=== PATIENT | female | born 1960 | race Caucasian/White ===

== ENCOUNTER → 2016-09-12 | Outpatient (CLI) | payer BC ==
--- NOTE | 2016-09-13 07:59 | MM ---
Reason for exam: screening (asymptomatic). Last mammogram was performed 1 year and 1 month ago. History: Patient is postmenopausal. Taking estrogen for 10 years 3 months beginning at age 40. Physical Findings: A clinical breast exam by your physician is recommended on an annual basis and results should be correlated with mammographic findings. MG Screening Mammo w CAD Bilateral CC and MLO view(s) were taken. Prior study comparison: August 27, 2015, bilateral MG screening mammo w CAD. August 25, 2014, bilateral MG screening mammo w CAD. The breast tissue is heterogeneously dense. This may lower the sensitivity of mammography. There is chronic nodularity bilaterally. There is no dominant lesion. No significant changes when compared with prior studies. ASSESSMENT: Benign, BI-RAD 2 RECOMMENDATION: Routine screening mammogram of both breasts in 1 year.
== END | disposition home or self-care (01) ==
LOC: RADMAMWWP 07:00
PROVIDERS: ATTEND Family Medicine
DX: Z12.31 Encounter for screening mammogram for malignant neoplasm of breast (principal)

== ENCOUNTER → 2017-10-17 | Outpatient (CLI) | payer BC ==
--- NOTE | 2017-10-18 07:20 | MM ---
Reason for exam: screening (asymptomatic). Last mammogram was performed 1 year and 1 month ago. History: Patient is postmenopausal. Took estrogen for 17 years 3 months beginning at age 40. Physical Findings: A clinical breast exam by your physician is recommended on an annual basis and results should be correlated with mammographic findings. MG Screening Mammo w CAD Bilateral CC and MLO view(s) were taken. Prior study comparison: September 12, 2016, bilateral MG screening mammo w CAD. August 27, 2015, bilateral MG screening mammo w CAD. The breast tissue is heterogeneously dense. This may lower the sensitivity of mammography. Benign appearing bilateral punctate calcifications. ASSESSMENT: Benign, BI-RAD 2 RECOMMENDATION: Routine screening mammogram of both breasts in 1 year.
== END | disposition home or self-care (01) ==
LOC: RADMAMWWP 07:01
PROVIDERS: ATTEND Family Medicine
DX: Z12.31 Encounter for screening mammogram for malignant neoplasm of breast (principal)
CPT/HCPCS: 77067

== ENCOUNTER 2018-05-31 08:55 | Day surgery (SDC) | payer BC, OTHER ==
[2018-05-29 09:30] VITALS: BMI 27.6
[~2018-05-31 08:55] MED LIST: LACTATED RINGERS 1,000 ML IV SCH; LIDOCAINE 1% 20 ML VIAL (10MG/ML) FOR IV START INTRADERMA PRN
[2018-05-31 09:32] VITALS: RESP 16; TEMP 97
[2018-05-31] MEDS ORDERED: PROPOFOL 10 MG/ML 20 ML VIAL IV ONE (10:09)
[2018-05-31] MEDS ORDERED: LIDOCAINE 1% INJ 10MG/ML (20 ML MDV) ONE (10:09)
[2018-05-31 11:15] VITALS: BP 137/87; PULSE 65
--- NOTE | 2018-05-31 11:16 | P.PCN ---
Date of Procedure: 05/31/18 Procedure(s) Performed: Procedure: Colonoscopy and biopsy. Preoperative diagnosis: Screening for neoplasia. Postoperative diagnosis: 1. Diverticulosis with no evidence of acute diverticulitis or strictures. 2. Nonspecific mucosal changes in the terminal ileum biopsies obtained. Preparation: HalfLytely prep. Sedation: Was provided by anesthesia. Brief clinical history: The patient is a 58-year-old female who is scheduled for this evaluation for screening for neoplasia age being her risk factor. Her first exam was around age 50. The patient has family history of Crohn's disease in her son and she has occasional episodes of abdominal pain and diarrhea and she has been wondering if there is any inflammation in her bowel. She denies extraintestinal manifestations of inflammatory bowel disease or any bleeding. Procedure: With the patient on her left lateral decubitus position and after informed consent and adequate sedation, the perianal area was inspected and it did not show any fissures or fistulas. There were no masses felt on digital rectal examination. The Olympus CFH 190L video colonoscope was then inserted in the rectum in the usual fashion and advanced to the cecum. I intubated the ileocecal valve and examined the terminal ileum as well. The terminal ileum appeared healthy and there was numerous pinpoint submucosal hemorrhages of unclear clinical significance but there were no ulcers, erosions strictures or other pathology to suggest Crohn's disease. I obtained biopsies in the terminal ileum. Elsewhere, the colon showed multiple diverticular orifices on the left side and occasional orifice around the hepatic flexure and on the right side with no evidence of acute diverticulitis or strictures. The mucosa appeared healthy. No polyps or tumors were seen. I retroflexed the endoscope in the rectum before the endoscope was withdrawn. The patient tolerated the procedure well. Plan: The patient was reassured. Discussed dietary measures. She will follow- up with you as planned and I recommended repeat exam in 10 years.
== END 2018-05-31 11:25 | disposition home or self-care (01) ==
LOC: ORWHC2ENDO 08:55
DX: Z12.11 Encounter for screening for malignant neoplasm of colon (principal); K57.30 Diverticulosis of large intestine without perforation or abscess without bleeding; K92.2 Gastrointestinal hemorrhage, unspecified; Z83.79 Family history of other diseases of the digestive system; I10 Essential (primary) hypertension; Z79.899 Other long term (current) drug therapy
CPT/HCPCS: 88305; 45380; J2001; J2704

== ENCOUNTER → 2018-10-29 | Outpatient (CLI) | payer BC ==
--- NOTE | 2018-10-30 09:12 | MM ---
Reason for exam: screening (asymptomatic). Last mammogram was performed 1 year ago. History: Patient is postmenopausal. Took estrogen for 17 years 3 months beginning at age 40. Physical Findings: A clinical breast exam by your physician is recommended on an annual basis and results should be correlated with mammographic findings. MG Screening Mammo w CAD Bilateral CC and MLO view(s) were taken. Prior study comparison: October 17, 2017, bilateral MG screening mammo w CAD. September 12, 2016, bilateral MG screening mammo w CAD. The breast tissue is heterogeneously dense. This may lower the sensitivity of mammography. Grouped punctate calcifications on the left are unchanged. No significant changes when compared with prior studies. ASSESSMENT: Negative, BI-RAD 1 RECOMMENDATION: Routine screening mammogram of both breasts in 1 year.
== END | disposition home or self-care (01) ==
LOC: RADMAMWWP 07:25
PROVIDERS: ATTEND Family Medicine
DX: Z12.31 Encounter for screening mammogram for malignant neoplasm of breast (principal)
CPT/HCPCS: 77067

== ENCOUNTER 2018-11-15 12:55 | Emergency (ER) | payer BC, OTHER ==
[2018-11-15 13:07] VITALS: BP 163/96; PULSE 93; RESP 18; TEMP 98.7
--- NOTE | 2018-11-15 14:01 | ED ---
General Adult HPI - General Chief complaint: Allergic Reaction Stated complaint: lump on face, poss allergic reaction Time Seen by Provider: 11/15/18 13:15 Source: patient Mode of arrival: ambulatory Limitations: no limitations - History of Present Illness Initial comments: Patient is a 58-year-old female presenting to emergency Department with complain ts of sudden onset left cheek swelling 30 minutes. Patient states she was eating some seafood, left the the restaurant, and felt some swelling on her left cheek. Patient thought she might be having an ALLERGIC reaction. Patient states she has no known ALLERGIES and has eaten seafood before. Patient denies any trouble breathing, rashes, hives, itching, fever, chills. Patient is denying any pain in her cheek. No other complaints at this time. - Related Data Home Medications Medication Instructions Recorded Confirmed Cholecalciferol [Vitamin D3] 1,000 unit PO DAILY 05/29/18 05/31/18 Glucosamine Sulfate 500 mg PO DAILY 05/29/18 05/31/18 Hydrochlorothiazide (Unk Dose) 1 tab PO DAILY 05/29/18 05/31/18 [place]-3 Fatty Acids/Fish Oil [Fish 1 each PO DAILY 05/29/18 05/31/18 Oil 1,000 mg Softgel] Allergies Allergy/AdvReac Type Severity Reaction Status Date / Time No Known Allergies Allergy Verified 11/15/18 13:04 Review of Systems ROS Statement: Those systems with pertinent positive or pertinent negative responses have been documented in the HPI. ROS Other: All systems not noted in ROS Statement are negative. Past Medical History Past Medical History: Hypertension History of Any Multi-Drug Resistant Organisms: None Reported Past Surgical History: Section, Hysterectomy Additional Past Surgical History / Comment(s): colonoscopy, osmar carpal tunnel, neck fusion Past Anesthesia/Blood Transfusion Reactions: No Reported Reaction Past Psychological History: No Psychological Hx Reported Smoking Status: Current every day smoker Past Alcohol Use History: Daily Past Drug Use History: None Reported - Past Family History Mother Family Medical History: No Reported History Father Family Medical History: Cancer Additional Family Medical History / Comment(s): lung cancer General Exam - General Exam Comments Initial Comments: GENERAL: Well-appearing, well-nourished and in no acute distress. HEAD: Atraumatic, normocephalic. EYES: Pupils equal round and reactive to light, extraocular movements intact, sclera anicteric, conjunctiva are normal. ENT: TMs normal, nares patent, oropharynx clear without exudates. Moist mucous membranes. No erythema of the left gumline's. Patient has some mild swelling of the left jaw area over the masseter muscle. Patient has no pain with palpation. There is no overlying erythema. NECK: Normal range of motion, supple without lymphadenopathy or JVD. LUNGS: Breath sounds clear to auscultation bilaterally and equal. No wheezes rales or rhonchi. HEART: Regular rate and rhythm without murmurs, rubs or gallops. ABDOMEN: Soft, nontender, normoactive bowel sounds. No guarding, no rebound. No masses appreciated. : Deferred EXTREMITIES: Normal range of motion, no pitting or edema. No clubbing or cyanosis. NEUROLOGICAL: Cranial nerves II through XII grossly intact. Normal speech, normal gait. PSYCH: Normal mood, normal affect. SKIN: Warm, Dry, normal turgor, no rashes or lesions noted. Limitations: no limitations Course Vital Signs 11/15/18 13:04 Temperature 98.7 F Pulse Rate 93 Respiratory 18 Rate Blood Pressure 163/96 O2 Sat by Pulse 95 Oximetry Medical Decision Making - Medical Decision Making Patient is a 58-year-old female with complaints of sudden onset left jaw area swelling 30 minutes. Patient states she was eating seafood about she might be having ALLERGIC reaction. Patient denies any trouble breathing, rashes, hives, itching, fever, chills. On exam patient has mild to moderate swelling of the left jaw area over the masseter muscle. There is no overlying erythema or pain with palpation. It was discussed with patient that this could be a blocked salivary gland and/or salivary stone and not an ALLERGIC reaction. Discussed with patient she should eat sour foods, chew gym, anything to increase ever production. Return parameters were discussed with the patient and she v erbalized understanding.. Patient will follow up with PCP and/or dentist if symptoms continue. Patient will be discharged home. Case is discussed with Dr. Montejo. Disposition Clinical Impression: Salivary disorder Disposition: HOME SELF-CARE Condition: Stable Instructions (If sedation given, give patient instructions): Parotid Duct Obstruction (ED) Additional Instructions: Please return to the Emergency Department if symptoms worsen or any other concerns. Follow up with PCP and/or dentist if symptoms continue. Is patient prescribed a controlled substance at d/c from ED?: No Referrals: Tyler Abrams MD [Primary Care Provider] - 1-2 days
== END 2018-11-15 14:18 | disposition home or self-care (01) ==
LOC: EC 12:55
DX: K11.9 Disease of salivary gland, unspecified (principal); I10 Essential (primary) hypertension; F17.200 Nicotine dependence, unspecified, uncomplicated; Z79.899 Other long term (current) drug therapy
CPT/HCPCS: 99283

== ENCOUNTER → 2019-11-01 | Outpatient (CLI) | payer OTHER ==
--- NOTE | 2019-11-04 10:03 | MM ---
Reason for exam: screening (asymptomatic). Last mammogram was performed 1 year ago. History: Patient is postmenopausal. Took estrogen for 17 years 3 months beginning at age 40. Physical Findings: A clinical breast exam by your physician is recommended on an annual basis and results should be correlated with mammographic findings. MG 3D Screening Mammo W/Cad Bilateral CC and MLO view(s) were taken. Prior study comparison: October 29, 2018, bilateral MG screening mammo w CAD. October 17, 2017, bilateral MG screening mammo w CAD. The breast tissue is heterogeneously dense. This may lower the sensitivity of mammography. Finding: There is a 11 mm high density mass located 5-6 cm from the nipple in the 6 o'clock position. New finding since October 29, 2018 and October 17, 2017. ASSESSMENT: Incomplete: need additional imaging evaluation, BI-RAD 0 RECOMMENDATION: Ultrasound of the left breast. [facility] will attempt to contact patient to return for ultrasound.
== END | disposition home or self-care (01) ==
LOC: RADMAMWWP 09:37
PROVIDERS: ATTEND Family Medicine
DX: Z12.39 Encounter for other screening for malignant neoplasm of breast (principal)
CPT/HCPCS: 77063; 77067

== ENCOUNTER → 2019-11-12 | Outpatient (CLI) | payer OTHER ==
--- NOTE | 2019-11-12 09:38 | USB ---
Reason for exam: additional evaluation requested from abnormal screening. History: Patient is postmenopausal. Took estrogen for 17 years 3 months beginning at age 40. Physical Findings: Nurse did not find any significant physical abnormalities on exam. US Breast Workup Limited LT Left limited breast ultrasound including focal area of concern, retroareolar and axilla demonstrates a 1.3 x 0.8 x 0.5cm ova, cystic cluster at 5 o'clock, duct ectasia at 6 o'clock and a 1.0 x 2.3 x 0.7cm largest oval lymph node at the axilla. These results were verbally communicated with the patient and result sheet given to the patient on 11/12/19. ASSESSMENT: Probably benign, BI-RAD 3 RECOMMENDATION: Follow-up diagnostic mammogram and ultrasound of the left breast in 6 months.
== END | disposition home or self-care (01) ==
LOC: RADUSWWP 07:34
PROVIDERS: ATTEND Family Medicine
DX: R92.8 Other abnormal and inconclusive findings on diagnostic imaging of breast (principal)

== ENCOUNTER → 2020-05-21 | Outpatient (CLI) | payer OTHER ==
--- NOTE | 2020-05-22 08:08 | MM ---
Reason for exam: follow-up at short interval from prior study. Last mammogram was performed 7 months ago. History: Patient is postmenopausal. Took estrogen for 17 years 3 months beginning at age 40. Physical Findings: Nurse did not find any significant physical abnormalities on exam. MG 3D Diag Mammo W/Cad LT CC and MLO view(s) were taken of the left breast. Prior study comparison: November 01, 2019, bilateral MG 3d screening mammo w/cad. October 29, 2018, bilateral MG screening mammo w CAD. The breast tissue is heterogeneously dense. This may lower the sensitivity of mammography. Finding: There are typically benign round, grouped/clustered calcifications in the central position of the left breast, stable. There is no new dominant lesion. Asymmetric breast tissue. These results were verbally communicated with the patient and result sheet given to the patient on 05/21/20. ASSESSMENT: Benign, BI-RAD 2 RECOMMENDATION: Return to routine screening mammogram schedule for both breasts.
--- NOTE | 2020-05-22 08:11 | USB ---
Reason for exam: follow-up at short interval from prior study. History: Patient is postmenopausal. Took estrogen for 17 years 3 months beginning at age 40. US Breast Limited LT Technologist: Bessie Calle Left limited breast ultrasound including focal area of concern, retroareolar and axilla demonstrates a 1.1 x 0.9 x 0.5cm cystic, stable lesion at 5 o'clock and punctate calcifications at 4 o'clock. Scanned 4-6 o'clock. These results were verbally communicated with the patient and result sheet given to the patient on 05/21/20. ASSESSMENT: Benign, BI-RAD 2 RECOMMENDATION: Return to routine screening mammogram schedule for the left breast. Back on schedule.
== END | disposition home or self-care (01) ==
LOC: RADMAMWWP 13:41
PROVIDERS: ATTEND Family Medicine
DX: R92.8 Other abnormal and inconclusive findings on diagnostic imaging of breast (principal)
CPT/HCPCS: 77061; 77065

== ENCOUNTER → 2020-10-23 | Outpatient (CLI) | payer OTHER ==
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
== END | disposition home or self-care (01) ==
LOC: RADMRIMAIN 16:55
PROVIDERS: ATTEND Orthopaedic Surgery Orthopaedic Surgery of the Spine
DX: M48.02 Spinal stenosis, cervical region (principal); M50.221 Other cervical disc displacement at C4-C5 level; M43.12 Spondylolisthesis, cervical region
CPT/HCPCS: 72141

== ENCOUNTER → 2020-11-04 | Outpatient (CLI) | payer OTHER ==
--- NOTE | 2020-11-06 14:13 | MM ---
Reason for exam: screening (asymptomatic). Last mammogram was performed 6 months ago. History: Patient is postmenopausal. Took estrogen for 17 years 3 months beginning at age 40. Physical Findings: A clinical breast exam by your physician is recommended on an annual basis and results should be correlated with mammographic findings. MG 3D Screening Mammo W/Cad Bilateral CC and MLO view(s) were taken. Prior study comparison: May 21, 2020, left breast MG 3d diag mammo w/cad LT. November 01, 2019, bilateral MG 3d screening mammo w/cad. The breast tissue is heterogeneously dense. This may lower the sensitivity of mammography. No significant changes when compared with prior studies. ASSESSMENT: Benign, BI-RAD 2 RECOMMENDATION: Routine screening mammogram of both breasts in 1 year.
== END | disposition home or self-care (01) ==
LOC: RADMAMWWP 12:58
PROVIDERS: ATTEND Family Medicine
DX: Z12.31 Encounter for screening mammogram for malignant neoplasm of breast (principal); Z79.899 Other long term (current) drug therapy; Z78.0 Asymptomatic menopausal state
CPT/HCPCS: 77063; 77067

== ENCOUNTER → 2021-01-23 | Outpatient (CLI) | payer OTHER ==
--- NOTE | 2021-01-24 03:13 | MR ---
EXAMINATION TYPE: MR cervical spine wo/w con DATE OF EXAM: 01/23/2021 COMPARISON: 10/23/2020 HISTORY: Rt arm weakness x 1 year CONTRAST: Standard multiplanar, multisequence MRI departmental protocol utilizing 7 mL intravenous Gadavist alfredo olinium contrast. The cervical vertebra have fairly normal alignment. There is anterior fusion surgery at C5-6. There i s C4-5 posterior disc bulging and herniation in the midline. There is very slight deformity of the sp inal cord. Spinal canal measures 6.5 mm. There is no evidence of edema in the spinal cord. Brainstem is intact. There is no compression fracture. I see no bony destructive process. There is no paraspinal mass. IMPRESSION: Previous fusion surgery. C4-5 posterior disc herniation with some impingement on the spinal canal lilia t appears very slightly worse than the last MR scan. Spinal canal is narrowed from 7.2 mm on previous exam to 6.5 mm.
== END | disposition home or self-care (01) ==
LOC: RADMRIMAIN 12:39
PROVIDERS: ATTEND Orthopaedic Surgery Orthopaedic Surgery of the Spine
DX: M48.02 Spinal stenosis, cervical region (principal); M50.221 Other cervical disc displacement at C4-C5 level; Z98.1 Arthrodesis status
CPT/HCPCS: 72156; A9585

== ENCOUNTER → 2021-03-25 | Outpatient (CLI) | payer OTHER ==
[2021-03-25 10:17] LABS: Basophils % (A) 1 %; Eosinophils # (A) 0.1 k/uL (0-0.7); Eosinophils % (A) 2 %; HCT 46.4 % (34.0-46.0); HGB 15.6 gm/dL (11.4-16.0); Lymphocytes % (A) 39 %; MCH 33.6 pg (25.0-35.0); MCHC 33.6 g/dL (31.0-37.0); MCV 99.8 fL (80.0-100.0); Mean Platelet Volume 7.2; Monocytes # (A) 0.3 k/uL (0-1.0); Monocytes % (A) 5 %; Neutrophils # (A) 2.6 k/uL (1.3-7.7); Neutrophils % (A) 50 %; Platelet Count 264 k/uL (150-450); RBC 4.65 m/uL (3.80-5.40); RDW 11.8 % (11.5-15.5); WBC 5.1 k/uL (3.8-10.6)
[2021-03-25 10:26] LABS: INR 0.9 (<1.2); Partial Thromboplastin Time 23.8 sec (22.0-30.0); Prothrombin Time 10.2 sec (9.0-12.0)
[2021-03-25 10:27] LABS: Appearance,Urine Clear (Clear); Bilirubin,Urine Negative (Negative); Blood,Urine Negative (Negative); Color,Urine Yellow; Glucose,Urine (UA) Negative (Negative); Ketones,Urine Negative (Negative); Leukocyte Esterase,Urine Negative (Negative); Nitrite,Urine Negative (Negative); Protein,Urine Negative (Negative); Specific Gravity,Urine 1.011 (1.001-1.035); Urobilinogen,Urine <2.0 mg/dL (<2.0)
[2021-03-25 10:29] LABS: African American GFR (CKD) >90 (>60 ml/min/1.73 sqM); Anion Gap 10 mmol/L; Blood Urea Nitrogen 7 mg/dL (7-17); Calcium 9.9 mg/dL (8.4-10.2); Carbon Dioxide 28 mmol/L (22-30); Chloride 100 mmol/L (98-107); Glucose 115 mg/dL (74-99); Magnesium 1.9 mg/dL (1.6-2.3); Non-African American GFR(CKD) >90 (>60 ml/min/1.73 sqM); Potassium 3.4 mmol/L (3.5-5.1); Sodium 138 mmol/L (137-145)
--- NOTE | 2021-03-25 12:00 | XR ---
EXAMINATION TYPE: XR chest 2V DATE OF EXAM: 03/25/2021 COMPARISON: None INDICATION: Presurgical clearance TECHNIQUE: Frontal and lateral views of the chest are obtained. FINDINGS: The heart size is normal. The pulmonary vasculature is normal. May be some minimal right middle lobe infiltrate. Correlate for atelectasis. Lungs otherwise appear c lear. IMPRESSION: 1. Some minimal atelectasis may be within the right middle lobe. Study otherwise appears unremarkable .
== END | disposition home or self-care (01) ==
LOC: LABPAT 09:33
PROVIDERS: ATTEND Orthopaedic Surgery Orthopaedic Surgery of the Spine
DX: Z01.818 Encounter for other preprocedural examination (principal); I45.10 Unspecified right bundle-branch block; R53.1 Weakness; R94.31 Abnormal electrocardiogram [ECG] [EKG]
CPT/HCPCS: 36415; 71046; 80048; 81003; 83735; 85025; 85610; 85730; 93005

== ENCOUNTER → 2021-04-13 | Outpatient (CLI) | payer OTHER ==
[2021-04-13 11:00] LABS: Appearance,Urine Clear (Clear); Bilirubin,Urine Negative (Negative); Blood,Urine Negative (Negative); Color,Urine Yellow; Glucose,Urine (UA) Negative (Negative); Ketones,Urine Negative (Negative); Leukocyte Esterase,Urine Negative (Negative); Nitrite,Urine Negative (Negative); Protein,Urine Negative (Negative); Specific Gravity,Urine 1.012 (1.001-1.035); Urobilinogen,Urine <2.0 mg/dL (<2.0)
== END | disposition home or self-care (01) ==
LOC: LABPAT 09:46
PROVIDERS: ATTEND Orthopaedic Surgery Orthopaedic Surgery of the Spine
DX: Z01.812 Encounter for preprocedural laboratory examination (principal); R29.898 Other symptoms and signs involving the musculoskeletal system
CPT/HCPCS: 81003

== ENCOUNTER 2021-04-21 06:59 | Day surgery (SDC) | payer OTHER ==
[2021-04-14 16:50] VITALS: BMI 28.9
[~2021-04-21 06:59] MED LIST changes: +DEXAMETHASONE SOD PHOSPHATE 4 MG/ML 1 ML VIAL IV ONE; +LIDOCAINE 1% (10MG/ML) FOR IV START INTRADERMA PRN; -LIDOCAINE 1% 20 ML VIAL (10MG/ML) FOR IV START INTRADERMA PRN; +ONDANSETRON 4 MG/2 ML VIAL IVP ONE; +ceFAZolin 1,000 MG in SODIUM CHLORIDE 0.9% IRRIGATIO 1,000 ML IRRIGATION PRN
[2021-04-21] MEDS ORDERED: HYDROmorphone 0.5 MG/0.5 ML SYRINGE IVP PRN ×2 (07:00→10:40)
[2021-04-21] MEDS ORDERED: SCOPOLAMINE 1.5MG/72HR PATCH TRANSDERM ONE (08:08)
[2021-04-21] MEDS ORDERED: NEOSTIGMINE 1 MG/ML 10 ML VIAL ONE (08:25)
[2021-04-21] MEDS ORDERED: HYDROmorphone (PF) 1 MG/ML ONE (08:25)
[2021-04-21] MEDS ORDERED: PROPOFOL 10 MG/ML 20 ML VIAL IV ONE (08:25)
[2021-04-21] MEDS ORDERED: fentaNYL (PF) 50 MCG/ML 2 ML AMP ONE (08:25)
[2021-04-21] MEDS ORDERED: PHENYLEPHRINE-0.9% NACL SYG 1,000 MCG/10 ML SYRINGE ONE (08:25)
[2021-04-21] MEDS ORDERED: SUCCINYLCHOLINE CHLORIDE 100 MG/5 ML SYR IV ONE (08:25)
[2021-04-21] MEDS ORDERED: ROCURONIUM 10 MG/ML (5 ML VIAL) IV ONE (08:25)
[2021-04-21] MEDS ORDERED: MIDAZOLAM 2 MG/2 ML VIAL ONE (08:25)
[2021-04-21] MEDS ORDERED: DEXAMETHASONE SOD PHOSPHATE 10 MG/ML 1 ML VIAL ONE (08:25)
[2021-04-21] MEDS ORDERED: GLYCOPYRROLATE 0.2 MG/ML 2 ML VIAL ONE (08:25)
[2021-04-21] MEDS ORDERED: GELATIN SPONGE,ABSORB (LARGE) 1 EACH SPONGE MISCELLANE ONE (09:18)
[2021-04-21] MEDS ORDERED: LIDOCAINE 2%-EPI 1:100,000 20 ML VIAL SQ ONE ×2 (09:18)
[2021-04-21] MEDS ORDERED: BUPIVACAINE (PF) 0.5% 30 ML VIAL SQ ONE ×2 (09:18)
--- NOTE | 2021-04-21 09:47 | XR ---
EXAMINATION TYPE: XR cervical spine 1V DATE OF EXAM: 04/21/2021 COMPARISON: MRI cervical spine January 23, 2021. HISTORY: Neck pain. TECHNIQUE: Single portable crosstable lateral view cervical spine. FINDINGS: Study for surgical planning and not for diagnostic purposes. Anterior fusion plate with art ificial disc material in ossific fusion C5-C6 level is present. There is severe spurring with moderat e disc space narrowing and slight grade 1 retrolisthesis C4 on C5 just above this. Metallic pointer l ocalizes to this level for surgical planning. IMPRESSION: As above
[2021-04-21] MEDS ORDERED: LACTATED RINGERS 1,000 ML IV ONE (09:52)
[2021-04-21] MEDS ORDERED: BENZOCAINE/MENTHOL LOZENG 1 EACH LOZENGE MUCOUS MEM PRN (10:40)
[2021-04-21] MEDS ORDERED: CYCLOBENZAPRINE 10 MG TAB PO PRN (10:40)
[2021-04-21] MEDS ORDERED: HYDROcodone/APAP 5-325MG 1 EACH TAB PO PRN (10:40)
[2021-04-21] MEDS ORDERED: ONDANSETRON 4 MG/2 ML VIAL IVP PRN (10:40)
[2021-04-21] MEDS ORDERED: ACETAMINOPHEN TAB 500 MG TAB PO PRN (10:40)
[2021-04-21] MEDS ORDERED: SODIUM CHLORIDE 0.9% 1,000 ML IV SCH (10:45)
[2021-04-21 10:49] VITALS: TEMP 98.1
--- NOTE | 2021-04-21 10:52 | P.OP ---
Date of Procedure: 04/21/21 Preoperative Diagnosis: Herniated nucleus pulposis C4 5, cervical stenosis C4 5, upper extremity radiculopathy, upper extremity weakness, history of anterior cervical decompression with discectomy and fusion C5 6 with retained hardware Postoperative Diagnosis: Same Anesthesia: GETA Pathology: none sent Condition: stable Disposition: PACU Description of Procedure: BRIEF OPERATIVE NOTE Preoperative Diagnosis:Herniated nucleus pulposis C4 5, cervical stenosis C4 5, upper extremity radiculopathy, upper extremity weakness, history of anterior cervical decompression with discectomy and fusion C5 6 with retained hardware Postoperative Diagnosis:Herniated nucleus pulposis C4 5, cervical stenosis C4 5, upper extremity radiculopathy, upper extremity weakness, history of anterior cervical decompression with discectomy and fusion C5 6 with retained hardware Procedure: Anterior cervical decompression and fusion C4 5 Removal of deep hardware C5 6 Exploration of a fusion C5 6 with findings a solid fusion Placement of interbody graft C4 5 Application of anterior cervical plate C4 5 Surgeon: Dr. Roberto Captain'S Assistant: Carlitos Tim is present throughout the entire the case persistence during positioning, dissection, exposure, visualization, and all crucial elements of the case as well as closure. Anesthesia: General anesthesia per Dr. Moreno Estimated blood loss: Approximately 30 mL Complications: None apparent Components implanted: We removed a [employer] Turner anterior cervical plate with screws which were all found to be in total, we placed a new K2M [place] anterior cervical plate with screws and Vikos anterior graft bone graft Disposition: To recovery room in good stable condition. OPERATIVE INDICATIONS The patient has had long-standing issues in their neck and upper extremities. She had history of anterior cervical decompression with discectomy and fusion over 14 years ago for a disc herniation at C5 6 with upper extremity radiculopathy. Patient had done very well over this time however over the past several months she's been having worsening of her pain over her right upper extremity with numbness tingling and some weakness with some neck pain as well. She is found have a solid fusion at C5 6 with severe disc degeneration osteophyte phytic formation and stenosis with disc herniation at C4 5 above her prior fusion. This correlated well with her neck and upper extremity symptoms. The patient has been through conservative treatment. We discussed various treatment options including surgery, and the patient wishes to proceed with surgery We discussed the risk, patient's alternatives and benefits of surgery including but not limited to, risk of bleeding risk of infection, risk of need for further surgery, risk of decreased, loss of motion, muscle function, malunion nonunion, hardware failure, nerve damage, paralysis, heart attack, and . OPERATIVE SUMMARY After discussing all the risks, patient alternatives and benefits at length, the patient elected to proceed with surgical intervention, signed informed consent, and presented for their procedure. The patient was seen and examined in the preoperative holding area and the surgical site was marked. The patient was given antibiotics and brought to the operating room. The patient was positioned on the operating room table in a supine position being careful to pad any bony prominences and pressure points. The patient was sedated and intubated by anesthesia in standard fashion. Once the airway and C- spine were stabilized the patient's arms were padded and tucked at her side, with her shoulders gently taped. The head was placed in a donut pad with the neck in good neutral alignment and position. We were careful to maintain the patient's cervical spine and good neutral alignment and position throughout. The patient was prepped and draped in a normal standard fashion. An appropriate timeout and keystone protocol performed. We were able to proceed with the surgery. The local wound area was infiltrated with local anesthetic. An incision was made transversely approximately 2-1/2 cm over the appropriate levels utilizing the prior incision on the right. Dissection was taken down subcutaneously to the level of the platysma which was split in line with its fibers. Dissection was taken with a carotid approach, with the trachea and esophagus medial and the carotid sheath laterally. We dissected down to the anterior surface of the vertebral bodies. Dissection was somewhat more complex with the revision dissection at the space where able to extend down to the anterior surface of the vertebral bodies and expose the anterior vertebral plate at C5 6 and the immediate cephalad level of C4 5. Intraoperative x-ray was taken which showed a marker at the appropriate level C4 5 . With the appropriate level positively confirmed, we were able to proceed with discectomy at the appropriate levels. All of the operative levels were exposed appropriately. The patient had all their twitches back, and there was no evidence of recurrent laryngeal issue. The wound was copiously irrigated and suctioned dry as had been done periodically throughout the case. At the appropriate level/levels, I established an annulotomy with an 11 blade scalpel. Large anterior osteophytes were removed. I was able to expose the plate at C5 6 after removing the anterior osteophytes. I had good exposure of the plate and and felt that I would have this positioning for the new plate with removal of the old plate. I went ahead and remove the old plate by releasing the locking devices removing the screws and the plate. It was all found to be in total. The fusion at C56 was examined and evaluated solid without any evidence of motion. I turned my attention further to the C4 5 disc. A discectomy was performed with a combination of pituitary rongeurs, curettes, a high-speed bur, and Kerrison rongeurs. The posterior longitudinal ligament was taken down as were any posterior osteophytes. This gave good central and bilateral foraminal decompression. There is no evidence of any dural tear or leak. The endplates were prepared with a high-speed bur. With the endplates in good parallel position, I was able to size for the appropriate size interbody graft. The wound was irrigated and suctioned dry the graft was prepared and malleted into position. It had good alignment and position with the anterior surface flush with the anterior surface of the vertebral bodies of C4 5. With the grafts intact, I was able to measure and contour and appropriate sized plate. The plate was positioned at the midline over the appropriate levels of C4/5. Screw holes were established with a hand drill and drill guide. Screws were placed in good alignment and position with excellent bony purchase. They were seated under the locking device. The construct was checked and found to be stable. Intraoperative x-ray was taken which showed good alignment and position of the implants at the appropriate levels. There was no evidence of any dural tear or leak. Good hemostasis was maintained. The wound was copiously irrigated and suctioned dry as had been done periodically throughout the case. The platysma was closed with absorbable suture. The subcutaneous tissue was closed. The subcuticular tissue was closed with absorbable suture. The wound was cleaned and dried and dressed appropriately. A soft cervical collar was placed appropriately. The patient was woken up by anesthesia, extubated, transferred back gently to their hospital bed and brought to the recovery room in good stable condition. The patient will be admitted to the hospital for appropriate postoperative care, medical management and monitoring. We will continue to follow them closely about the postoperative course.
[2021-04-21 10:57] VITALS: RESP 16
--- NOTE | 2021-04-21 10:59 | XR ---
EXAMINATION TYPE: XR cervical spine 1V DATE OF EXAM: 04/21/2021 COMPARISON: Cervical spine x-ray earlier today. HISTORY: Neck pain. TECHNIQUE: Single portable crosstable lateral view of cervical spine is obtained intraoperatively. FINDINGS: New Anterior fusion plate with radiodense rectangular disc material C4-C5 level after ante rior spur removal. Alignment stable and satisfactory. Ossific fusion of the C5-C6 vertebra redemonstr ated after interval removal of the C5-C6 anterior metallic plate. IMPRESSION: As above.
[2021-04-21 13:22] VITALS: BP 141/80; PULSE 82
[2021-04-22] MEDS ORDERED: NON FORMULARY DRUG (Cholecalciferol 1,000 UNIT Tab) PO SCH (09:00)
[2021-04-22] MEDS ORDERED: ATORVASTATIN 40 MG TAB PO SCH (09:00)
[2021-04-22] MEDS ORDERED: NON FORMULARY DRUG (Glucosamine Sulfate 500 MG Cap) PO SCH (09:00)
[2021-04-22] MEDS ORDERED: NON FORMULARY DRUG (Omega-3 Fatty Acids/Fish Oil [Fish Oil 1,000 Mg Softgel] 1 EACH Capsul PO SCH (09:00)
[2021-04-22] MEDS ORDERED: hydroCHLOROthiazide 25 MG TAB PO SCH (09:00)
== END 2021-04-21 13:21 | disposition home or self-care (01) ==
LOC: OR 06:59
PROVIDERS: ATTEND Orthopaedic Surgery Orthopaedic Surgery of the Spine
DX: M50.221 Other cervical disc displacement at C4-C5 level (principal); M48.02 Spinal stenosis, cervical region; Z20.822 Contact with and (suspected) exposure to COVID-19
CPT/HCPCS: 63045; 86900; 86901; 86850; 87635; 72020; 36415; C1713; C1762; J2250; J1100; J2710; J0690; J2405; J3010; J1170; J2370; J0330; J2704

== ENCOUNTER → 2021-11-23 | Outpatient (CLI) | payer OTHER ==
--- NOTE | 2021-11-24 13:45 | MM ---
Reason for Exam: Screening (asymptomatic). Last mammogram was performed 1 year(s) and 1 month(s) ago. Patient History: Menarche at age 14. First Full-Term at age 25. Left ovary removed at age 41. Right ovary removed at age 41. Hysterectomy at age 41. Postmenopausal. Estrogen for 17 years, 3 months, from age 40 until age 57. Risk Values: Madiha 5 year model risk: 1.5%. NCI Lifetime model risk: 7.2%. Prior Study Comparison: 11/01/2019 Bilateral Screening Mammogram, [facility]. 05/21/2020 Left Diagnostic Mammogram, [facility]. 11/04/2020 Bilateral Screening Mammogram, [facility]. Tissue Density: The breast tissue is heterogeneously dense. This may lower the sensitivity of mammography. Findings: Analyzed By CAD. There is no suspicious group of microcalcifications or new suspicious mass in either breast. Overall Assessment: Benign, BI-RAD 2 Management: Screening Mammogram of both breasts in 1 year. A clinical breast exam by your physician is recommended on an annual basis and results should be correlated with mammographic findings. Electronically signed and approved by: William Neville M.D. Radiologis
== END | disposition home or self-care (01) ==
LOC: RADMAMWWP 14:20
PROVIDERS: ATTEND Family Medicine
DX: Z12.31 Encounter for screening mammogram for malignant neoplasm of breast (principal); Z78.0 Asymptomatic menopausal state
CPT/HCPCS: 77063; 77067

== ENCOUNTER → 2023-11-27 | Outpatient (CLI) | payer OTHER ==
--- NOTE | 2023-11-28 13:20 | MM ---
Reason for Exam: Screening (asymptomatic). Last screening mammogram was performed 12 month(s) ago. Patient History: Menarche at age 14. First Full-Term at age 25. Left ovary removed at age 41. Right ovary removed at age 41. Hysterectomy at age 41. Postmenopausal. Patient has history of breast feeding. Estrogen for 17 years, 3 months, from age 40 until age 57. Risk Values: Madiha 5 year model risk: 1.6%. NCI Lifetime model risk: 6.8%. Prior Study Comparison: 11/04/2020 Bilateral Screening Mammogram, [facility]. 11/23/2021 Bilateral MG 3D screening mammo w/cad, [facility]. 11/24/2022 Bilateral MG 3D screening mammo w/cad, [facility]. Tissue Density: The breasts are heterogeneously dense, which may obscure small masses. Findings: Analyzed By CAD. There is no suspicious group of microcalcifications or new suspicious mass in either breast. Overall Assessment: Benign, BI-RAD 2 Management: Screening Mammogram of both breasts in 1 year. . Patient should continue monthly self-breast exams. A clinical breast exam by your physician is recommended on an annual basis. This exam should not preclude additional follow-up of suspicious palpable abnormalities. Note on Madiha scores and lifetime risk: 1. A Madiha score greater than 3% is considered moderate risk. If this is the case, consider specialist referral to assess eligibility for a risk reducing agent. 2. If overall lifetime risk for the development of breast cancer is 20% or higher, the patient may qualify for future screening with alternating mammogram and breast MRI. Electronically signed and approved by: Vikas Baum M.D. Radiologis
== END | disposition home or self-care (01) ==
LOC: RADMAMWWP 13:50
PROVIDERS: ATTEND Family Medicine
DX: Z12.31 Encounter for screening mammogram for malignant neoplasm of breast (principal); R92.333 Mammographic heterogeneous density, bilateral breasts; Z78.0 Asymptomatic menopausal state
CPT/HCPCS: 77063; 77067

== ENCOUNTER → 2024-04-25 | Outpatient (CLI) | payer OTHER ==
--- NOTE | 2024-04-25 09:57 | US ---
EXAMINATION TYPE: US liver DATE OF EXAM: 04/25/2024 COMPARISON: US CLINICAL INDICATION: Female, 63 years old with history of R74.8 ELEVATED LIVER ENZYMES; Elevated LFT' s TECHNIQUE: Grayscale and color Doppler imaging of the right upper quadrant was performed. FINDINGS: EXAM MEASUREMENTS: Liver Length: 15.4 cm Gallbladder Wall: 0.2 cm CBD: 0.6 cm Right Kidney: 12.8 x 4.0 x 4.9 cm EMBEDDED SOFTWARE DESIGN ENGINEER NOTES: Pancreas: 2mm panc duct visualized Liver: Heterogeneous, hypoechoic lesion right lobe sup to right kidney= 2.0 x 1.9 xv2.1 cm, unchange d from prior Gallbladder: wnl Evidence for sonographic Faria's sign: No CBD: wnl Right Kidney: No evidence of hydro IMPRESSION: Findings suggestive of underlying hepatic steatosis or hepatocellular disease with 2.0 x 2.1 cm right hepatic cyst stable in appearance. [facility], , 04/25/2024 9:54 AM
--- NOTE | 2024-04-25 11:24 | CTL ---
EXAMINATION TYPE: CT Low Dose Lung DATE OF EXAM: 04/25/2024 7:01 AM COMPARISON: None. CLINICAL INDICATION: Female, 63 years old with history of Z12.2 Screening F17.210 Nicotine dependence , smoker, History of tobacco use. TECHNIQUE: Low Dose CT Lung Screening, Low dose computed tomography scan was performed through the est at 1 millimeter thick sections and reconstructed images in the coronal plane at 1 mm thick sectio ns. IV CONTRAST USED: None. SCREENING VISIT: First visit CT DLP: 80.1 mGycm, Automated exposure control for dose reduction was used. CT CTDI: 2.3 mGy FINDINGS: CT DIAGNOSTIC QUALITY: Satisfactory LUNG NODULES: Not presentLeft lung: no nodules identified.Right lung: no nodules identified. LUNGS: COPD: Severity: None Fibrosis: Severity:None Lymph nodes: None Other findings: None RIGHT PLEURAL SPACE: Effusion: None Calcification: None Thickening: None Pneumothorax: None LEFT PLEURAL SPACE: Effusion: None Calcification: None Thickening: None Pneumothorax: None HEART: Heart Size: Mildly enlarged Coronary calcification: Mild Pericardial effusion: None OTHER FINDINGS: Upper abdomen: No significant abnormality Bony thorax: Degenerative changes Supraclavicular region: No significant abnormalityOther: No significant abnormalityI IMPRESSION: 1. No clinically significant pulmonary nodules. 2. Mild emphysema. CT LUNG RAD AND CT CHEST RECOMMENDATION: Lung-Rad 1 Negative: Continue annual screening with LDCT in 12 months. S Modifier (other clinically significant findings): [facility], , 04/25/2024 11:21 AM
--- NOTE | 2024-04-25 14:36 | BD ---
EXAMINATION TYPE: Axial Bone Density DATE OF EXAM: 04/25/2024 CLINICAL HISTORY: 63 years old Female. ICD-10 CODE: Z78.0 POST MENOPAUSAL , Additional History: Height: 61 Weight: 142 FRAX RISK QUESTIONS: Alcohol (3 or more units per day): yes Family History (Parent hip fracture): no History of Fracture in Adulthood: no Secondary Osteoporosis: no Current Tobacco Use: yes RISK FACTORS HISTORY OF: Surgery to Spine/Hip(right/left)/Wrist (right/left): no MEDICATIONS: Thyroid Medications: no Osteoporosis Medications: no EXAM MEASUREMENTS: Bone mineral densitometry was performed using the [employer] Interactive System. Bone mineral density as measured about the Lumbar spine is: ----- L1-L4(G/cm2): 1.073 T Score Values are as follows: ----- L1: -0.2 ----- L2: -0.6 ----- L3: -1.0 ----- L4: -1.8 ----- L1-L4: -0.9 Z Score Values are as follows: ----- L1: 1.4 ----- L2: 0.9 ----- L3: 0.5 ----- L4: -0.3 ----- L1-L4: 0.6 Bone mineral density has: Decreased -9.0% since study of: 09/18/2014 Bone mineral density about the R hip (g/cm2): 0.903 Bone mineral density about the L hip (g/cm2): 0.948 T Score values are as follows: -----R Neck: -1.7 -----L Neck: -1.4 -----R Total: -0.8 -----L Total: -0.5 Z Score values are as follows: -----R Neck: -0.3 -----L Neck: 0.0 -----R Total: 0.3 -----L Total: 0.7 Bone mineral density has: Decreased -14.3% since study of: 09/18/2014 FRAX%s: The graph provided illustrates a 12.0% chance for a major osteoporotic fx and a 2.9% chance f or the hips probability for fx in 10 years time. IMPRESSION: Normal (Values between +1 and -1 indicate normal bone mass). Consider repeating this study in 5 year s or sooner if there is some new clinical indication. NOTE: T-SCORE=SD OF THE YOUNG ADULT MEAN. [facility], , 04/25/2024 2:34 PM
== END | disposition home or self-care (01) ==
LOC: RADCTMAIN 06:10
PROVIDERS: ATTEND Internal Medicine
DX: Z12.2 Encounter for screening for malignant neoplasm of respiratory organs (principal); J43.9 Emphysema, unspecified; F17.210 Nicotine dependence, cigarettes, uncomplicated; R74.8 Abnormal levels of other serum enzymes; Z78.0 Asymptomatic menopausal state
CPT/HCPCS: 71271; 76705; 77080